=== PATIENT | female | born 1995 | race Caucasian/White ===

== ENCOUNTER 2018-05-16 07:03 | Emergency (ER) | payer BC, OTHER ==
[2018-05-16 07:12] VITALS: RESP 18
[2018-05-16] MEDS ORDERED: SODIUM CHLORIDE 0.9% 500 ML 500 ML IV STA (07:31)
[2018-05-16] MEDS ORDERED: ONDANSETRON 4 MG/2 ML VIAL IVP STA (07:31)
--- NOTE | 2018-05-16 07:35 | ED ---
General Adult HPI - General Chief complaint: Abdominal Pain Stated complaint: Back and abd pain Time Seen by Provider: 05/16/18 07:10 Source: patient, RN notes reviewed Mode of arrival: ambulatory Limitations: no limitations - History of Present Illness Initial comments: This is a 22-year-old female presents emergency Department complaining of abdominal pain and back pain starting this morning. Patient states that sharp in nature when it comes and it's severe when it comes. Patient states on both sides of the abdomen and both CVA areas. Patient states she also was nauseated and vomited times one. Patient states it seems to come in waves. Patient states currently it's still there but it's much better. Patient denies any diarrhea. Patient denies any difficulty breathing and denies any chest pain currently. Patient denies any headache any numbness or weakness. Patient states she has been having a bunch headaches earlier in the week but has not had one yet today. Patient denies any injury or trauma. Patient denies any dysuria hematuria urinary frequency. - Related Data Home Medications Medication Instructions Recorded Confirmed FLUoxetine HCL [PROzac] 40 mg PO HS 11/29/14 05/16/18 Ferrous Sulfate [Feosol] 65 mg PO DAILY 11/29/14 05/16/18 traZODone HCL [Desyrel] 100 mg PO HS 11/29/14 05/16/18 busPIRone HCL [Buspar] 7.5 mg PO BID 01/10/15 05/16/18 Aspirin/Acetaminophen/Caffeine 2 tab PO DAILY PRN 05/16/18 05/16/18 [Excedrin Migraine Caplet] Loratadine [Claritin] 10 mg PO DAILY 05/16/18 05/16/18 buPROPion SR [Wellbutrin SR] 300 mg PO QAM 05/16/18 05/16/18 Allergies Allergy/AdvReac Type Severity Reaction Status Date / Time venom-honey bee Allergy Unknown Swelling Verified 05/16/18 08:12 [bee venom (honey bee)] Review of Systems ROS Statement: Those systems with pertinent positive or pertinent negative responses have been documented in the HPI. ROS Other: All systems not noted in ROS Statement are negative. Past Medical History Past Medical History: Musculoskeletal Disorder Additional Past Medical History / Comment(s): 2 BULGING DISCS IN BACK. Migraines History of Any Multi-Drug Resistant Organisms: None Reported Past Surgical History: Appendectomy Additional Past Surgical History / Comment(s): EXC WISDOM TEETH. Past Anesthesia/Blood Transfusion Reactions: Motion Sickness, Postoperative Nausea & Vomiting (PONV) Past Psychological History: Anxiety, Depression Smoking Status: Never smoker Past Alcohol Use History: Occasional Past Drug Use History: None Reported - Past Family History Mother Family Medical History: No Reported History General Exam - General Exam Comments Initial Comments: GENERAL: Patient is well-developed and well-nourished. Patient is nontoxic and well- hydrated and is in mild distress. ENT: Neck is soft and supple. No significant lymphadenopathy is noted. Oropharynx is clear. Moist mucous membranes. EYES: The sclera were anicteric and conjunctiva were pink and moist. Extraocular movements were intact and pupils were equal round and reactive to light. Eyelids were unremarkable. PULMONARY: Unlabored respirations. Good breath sounds bilaterally. No audible rales rhonchi or wheezing was noted. CARDIOVASCULAR: There is a regular rate and rhythm without any murmurs gallops or rubs. ABDOMEN: Soft and nontender with normal bowel sounds. No palpable organomegaly was noted. There is no palpable pulsatile mass. SKIN: Skin is clear with no lesions or rashes and otherwise unremarkable. NEUROLOGIC: Patient is alert and oriented x3. Cranial nerves II through XII are grossly intact. Motor and sensory are also intact. Normal speech, volume and content. Symmetrical smile. MUSCULOSKELETAL: Normal extremities with adequate strength and full range of motion. No lower extremity swelling or edema. No calf tenderness. LYMPHATICS: No significant lymphadenopathy is noted PSYCHIATRIC: Normal psychiatric evaluation. Limitations: no limitations Course Vital Signs 05/16/18 05/16/18 07:09 09:16 Temperature 98.2 F 98.1 F Pulse Rate 81 67 Respiratory 18 18 Rate Blood Pressure 116/72 115/58 O2 Sat by Pulse 98 99 Oximetry Medical Decision Making - Medical Decision Making Ultrasound showed no acute abnormality. KUB showed no acute abnormality. I will back into reevaluate the patient she stated her symptoms were considerably better. Patient states she was ready to go home at this time. - Lab Data Result diagrams: 05/16/18 07:50 05/16/18 07:50 Lab Results 05/16/18 05/16/18 05/16/18 Range/Units 07:50 07:50 07:50 WBC 6.4 (3.8-10.6) k/uL RBC 4.89 (3.80-5.40) m/uL Hgb 13.8 (11.4-16.0) gm/dL Hct 42.0 (34.0-46.0) % MCV 85.9 (80.0-100.0) fL MCH 28.1 (25.0-35.0) pg MCHC 32.8 (31.0-37.0) g/dL RDW 12.7 (11.5-15.5) % Plt Count 306 (150-450) k/uL Neutrophils % 65 % Lymphocytes % 26 % Monocytes % 7 % Eosinophils % 0 % Basophils % 0 % Neutrophils # 4.2 (1.3-7.7) k/uL Lymphocytes # 1.6 (1.0-4.8) k/uL Monocytes # 0.4 (0-1.0) k/uL Eosinophils # 0.0 (0-0.7) k/uL Basophils # 0.0 (0-0.2) k/uL Sodium 142 (137-145) mmol/L Potassium 4.7 (3.5-5.1) mmol/L Chloride 106 (98-107) mmol/L Carbon Dioxide 30 (22-30) mmol/L Anion Gap 6 mmol/L BUN 13 (7-17) mg/dL Creatinine 0.83 (0.52-1.04) mg/dL Est GFR (CKD-EPI)AfAm >90 (>60 ml/min/1.73 sqM) Est GFR (CKD-EPI)NonAf >90 (>60 ml/min/1.73 sqM) Glucose 105 H (74-99) mg/dL Calcium 10.1 (8.4-10.2) mg/dL Total Bilirubin 0.5 (0.2-1.3) mg/dL AST 26 (14-36) U/L ALT 41 (9-52) U/L Alkaline Phosphatase 70 (38-126) U/L Total Protein 7.5 (6.3-8.2) g/dL Albumin 4.2 (3.5-5.0) g/dL Amylase 51 (30-110) U/L Lipase 53 (23-300) U/L Urine Color Yellow Urine Appearance Cloudy H (Clear) Urine pH 5.5 (5.0-8.0) Ur Specific [place] 1.017 (1.001-1.035) Urine Protein Negative (Negative) Urine Glucose (UA) Negative (Negative) Urine Ketones Negative (Negative) Urine Blood Negative (Negative) Urine Nitrite Negative (Negative) Urine Bilirubin Negative (Negative) Urine Urobilinogen <2.0 (<2.0) mg/dL Ur Leukocyte Esterase Small H (Negative) Urine RBC 2 (0-5) /hpf Urine WBC 4 (0-5) /hpf Ur Squamous Epith Cells 2 (0-4) /hpf Urine Mucus Moderate H (None) /hpf Urine HCG, Qual (Not Detectd) 05/16/18 Range/Units 07:50 WBC (3.8-10.6) k/uL RBC (3.80-5.40) m/uL Hgb (11.4-16.0) gm/dL Hct (34.0-46.0) % MCV (80.0-100.0) fL MCH (25.0-35.0) pg MCHC (31.0-37.0) g/dL RDW (11.5-15.5) % Plt Count (150-450) k/uL Neutrophils % % Lymphocytes % % Monocytes % % Eosinophils % % Basophils % % Neutrophils # (1.3-7.7) k/uL Lymphocytes # (1.0-4.8) k/uL Monocytes # (0-1.0) k/uL Eosinophils # (0-0.7) k/uL Basophils # (0-0.2) k/uL Sodium (137-145) mmol/L Potassium (3.5-5.1) mmol/L Chloride (98-107) mmol/L Carbon Dioxide (22-30) mmol/L Anion Gap mmol/L BUN (7-17) mg/dL Creatinine (0.52-1.04) mg/dL Est GFR (CKD-EPI)AfAm (>60 ml/min/1.73 sqM) Est GFR (CKD-EPI)NonAf (>60 ml/min/1.73 sqM) Glucose (74-99) mg/dL Calcium (8.4-10.2) mg/dL Total Bilirubin (0.2-1.3) mg/dL AST (14-36) U/L ALT (9-52) U/L Alkaline Phosphatase (38-126) U/L Total Protein (6.3-8.2) g/dL Albumin (3.5-5.0) g/dL Amylase (30-110) U/L Lipase (23-300) U/L Urine Color Urine Appearance (Clear) Urine pH (5.0-8.0) Ur Specific [place] (1.001-1.035) Urine Protein (Negative) Urine Glucose (UA) (Negative) Urine Ketones (Negative) Urine Blood (Negative) Urine Nitrite (Negative) Urine Bilirubin (Negative) Urine Urobilinogen (<2.0) mg/dL Ur Leukocyte Esterase (Negative) Urine RBC (0-5) /hpf Urine WBC (0-5) /hpf Ur Squamous Epith Cells (0-4) /hpf Urine Mucus (None) /hpf Urine HCG, Qual Not Detected (Not Detectd) Disposition Clinical Impression: Abdominal pain Disposition: HOME SELF-CARE Instructions: Abdominal Pain (ED) Is patient prescribed a controlled substance at d/c from ED?: No Referrals: Shanna Newton DO [Primary Care Provider] - 1-2 days Time of Disposition: 10:56
[2018-05-16 08:17] LABS: Basophils % (A) 0 %; Eosinophils % (A) 0 %; HGB 13.8 gm/dL (11.4-16.0); Lymphocytes # (A) 1.6 k/uL (1.0-4.8); Lymphocytes % (A) 26 %; MCH 28.1 pg (25.0-35.0); MCHC 32.8 g/dL (31.0-37.0); MCV 85.9 fL (80.0-100.0); Mean Platelet Volume 6.7; Monocytes # (A) 0.4 k/uL (0-1.0); Monocytes % (A) 7 %; Neutrophils # (A) 4.2 k/uL (1.3-7.7); Neutrophils % (A) 65 %; Platelet Count 306 k/uL (150-450); RBC 4.89 m/uL (3.80-5.40); RDW 12.7 % (11.5-15.5); WBC 6.4 k/uL (3.8-10.6)
[2018-05-16 08:21] LABS: Appearance,Urine Cloudy (Clear); Bilirubin,Urine Negative (Negative); Blood,Urine Negative (Negative); Color,Urine Yellow; Glucose,Urine (UA) Negative (Negative); Ketones,Urine Negative (Negative); Leukocyte Esterase,Urine Small (Negative); Mucus,Urine Moderate /hpf; Nitrite,Urine Negative (Negative); PH, Urine 5.5 (5.0-8.0); Protein,Urine Negative (Negative); RBC,Urine 2 /hpf (0-5); Specific Gravity,Urine 1.017 (1.001-1.035); Squamous Epithelial Cell,Urine 2 /hpf (0-4); Urobilinogen,Urine <2.0 mg/dL (<2.0); WBC,Urine 4 /hpf (0-5)
[2018-05-16 08:32] LABS: ALT 41 U/L (9-52); AST 26 U/L (14-36); Albumin 4.2 g/dL (3.5-5.0); Alkaline Phosphatase 70 U/L (38-126); Amylase 51 U/L (30-110); Anion Gap 6 mmol/L; Blood Urea Nitrogen 13 mg/dL (7-17); Calcium 10.1 mg/dL (8.4-10.2); Carbon Dioxide 30 mmol/L (22-30); Chloride 106 mmol/L (98-107); Glucose 105 mg/dL (74-99); Lipase 53 U/L (23-300); Potassium 4.7 mmol/L (3.5-5.1); Sodium 142 mmol/L (137-145); Total Bilirubin 0.5 mg/dL (0.2-1.3); Total Protein 7.5 g/dL (6.3-8.2)
--- NOTE | 2018-05-16 08:59 | XR ---
EXAMINATION TYPE: XR KUB DATE OF EXAM: 05/16/2018 CLINICAL HISTORY: Abdominal pain and vomiting TECHNIQUE: Single view upright abdominal radiograph was obtained. COMPARISON: 12/18/2012 FINDINGS: Scattered gas is seen in nondilated small bowel loops. Gas and fecal material is seen in nondilated colon. There is no visceromegaly, pneumoperitoneum, or abnormal calcification appreciate d. The lung bases are clear and the osseous structures are intact. IMPRESSION: Nonobstructive bowel gas pattern.
--- NOTE | 2018-05-16 10:36 | US ---
EXAMINATION TYPE: US gallbladder DATE OF EXAM: 05/16/2018 COMPARISON: NONE CLINICAL HISTORY: Pain. RUQ that radiates to the back. Not NPO EXAM MEASUREMENTS: Liver Length: 17.1 cm Gallbladder Wall: 0.3 cm CBD: 0.3 cm CHD: 0.3 cm Right Kidney: 10.9 x 5.0 x 3.4 cm Pancreas: Appears echogenic in appearance. Tail not well visualized due to overlying bowel gas. Liver: wnl Gallbladder: Appears nondistended, could be due to not being NPO. Limited visualization. Evidence for sonographic Mcknight's sign: neg CBD: wnl CHD: wnl Right Kidney: wnl IMPRESSION: Contracted gallbladder however there are no findings to suggest acute cholecystitis or ch olelithiasis. Hepatic echotexture is overall unremarkable. No right-sided hydronephrosis.
[2018-05-16 11:18] VITALS: BP 120/54; PULSE 65; TEMP 98.5
== END 2018-05-16 11:24 | disposition home or self-care (01) ==
LOC: EC 07:03
DX: R10.9 Unspecified abdominal pain (principal); R11.2 Nausea with vomiting, unspecified; M54.9 Dorsalgia, unspecified; F41.9 Anxiety disorder, unspecified; F32.9 Major depressive disorder, single episode, unspecified; Z79.899 Other long term (current) drug therapy; Z91.030 Bee allergy status; Z90.49 Acquired absence of other specified parts of digestive tract
CPT/HCPCS: 36415; 80053; 82150; 83690; 85025; 81001; 81025; 74018; 76705; 99284; 96374; J2405

== ENCOUNTER → 2018-06-05 | Outpatient (CLI) | payer BC ==
--- NOTE | 2018-06-06 09:58 | NM ---
EXAMINATION TYPE: NM hepatobiliary w EF DATE OF EXAM: 06/06/2018 COMPARISON: NONE INDICATION: Right upper quadrant pain TECHNIQUE: After the intravenous administration of 5.3 mCi Tc 99m Mebrofenin hepatobiliary scintigrap hy is performed. Images were obtained immediately post injection. FINDINGS: There is prompt uptake and excretion of radiotracer by the liver. Extrahepatic ducts are identified at 7 minutes. The gallbladder is visualized within 120 minutes. Small bowel activity is noted within 12 minutes. At one hour 8 ounces of oral ensure plus is given to mimic CCK and gallbladder ejection fraction is c alculated at 18 %, which is low. (Normal >35% and <80%.). IMPRESSION: 1. Delayed visualization of the gallbladder. 2. Low ejection fraction of 18%. This may be partially related to the delayed visualization of the ga llbladder.
== END | disposition home or self-care (01) ==
LOC: RADNMMAIN 15:06
PROVIDERS: ATTEND Family Medicine
DX: R10.11 Right upper quadrant pain (principal)
CPT/HCPCS: 78226; A9537

== ENCOUNTER 2018-07-03 08:17 | Day surgery (SDC) | payer BC ==
[2018-07-02 12:01] VITALS: BMI 38.4
[~2018-07-03 08:17] MED LIST: DEXAMETHASONE SOD PHOSPHATE 10 MG/ML 1 ML VIAL IV ONE; HEPARIN SODIUM,PORCINE 5,000 UNIT/ML 1 ML VIAL SQ ONE; LACTATED RINGERS 1,000 ML IV SCH; LIDOCAINE 1% 20 ML VIAL (10MG/ML) FOR IV START INTRADERMA PRN; MIDAZOLAM (PF) 2 MG/2 ML VIAL IV PRN; ONDANSETRON 4 MG/2 ML VIAL IVP ONE; SCOPOLAMINE 1.5MG/72HR PATCH TRANSDERM ONE
[2018-07-03] MEDS ORDERED: SCOPOLAMINE 1.5MG/72HR PATCH TRANSDERM ONE (09:57)
--- NOTE | 2018-07-03 09:57 | P.GSHP ---
History of Present Illness H&P Date: 07/03/18 Chief Complaint: Right upper quadrant pain This a 22-year-old female who's had complaints of right quadrant pain. Her recent HIDA scan shows a diminished ejection fraction consistent with biliary dysfunction and chronic cholecystitis. Past Medical History Past Medical History: Musculoskeletal Disorder Additional Past Medical History / Comment(s): Migraines History of Any Multi-Drug Resistant Organisms: None Reported Past Surgical History: Appendectomy, Back Surgery Additional Past Surgical History / Comment(s): EXC WISDOM TEETH. Past Anesthesia/Blood Transfusion Reactions: Motion Sickness, Postoperative Nausea & Vomiting (PONV) Smoking Status: Never smoker - Past Family History Mother Family Medical History: No Reported History Medications and Allergies Home Medications Medication Instructions Recorded Confirmed Type FLUoxetine HCL [PROzac] 40 mg PO HS 11/29/14 07/02/18 History Ferrous Sulfate [Feosol] 65 mg PO DAILY 11/29/14 07/02/18 History traZODone HCL [Desyrel] 100 mg PO HS 11/29/14 07/02/18 History busPIRone HCL [Buspar] 7.5 mg PO BID 01/10/15 07/02/18 History Aspirin/Acetaminophen/Caffeine 2 tab PO DAILY PRN 05/16/18 07/03/18 History [Excedrin Migraine Caplet] Loratadine [Claritin] 10 mg PO DAILY 05/16/18 07/02/18 History Atomoxetine HCl [Strattera] 60 mg PO QAM 07/02/18 07/02/18 History Norgestimate-Ethinyl Estradiol 1 tab PO DAILY 07/02/18 07/02/18 History [Sprintec 28 Day Tablet] Allergies Allergy/AdvReac Type Severity Reaction Status Date / Time venom-honey bee Allergy Unknown Swelling Verified 07/02/18 12:12 [bee venom (honey bee)] adhesive tape Allergy RASH-RED Verified 07/02/18 10:45 SKIN, ITCHING Surgical - Exam Vital Signs Temp Pulse Resp BP Pulse Ox 98.0 F 90 16 127/69 97 07/03/18 09:52 07/03/18 09:52 07/03/18 09:52 07/03/18 09:52 07/03/18 09:52 - General well developed, well nourished, no distress - Eyes PERRL - ENT normal pinna - Neck no masses - Respiratory normal expansion - Cardiovascular Rhythm: regular - Abdomen Abdomen: soft, non tender Assessment and Plan Assessment: Chronic cholecystitis Biliary Dysfunction We'll perform laparoscopic cholecystectomy.
[2018-07-03] MEDS ORDERED: ROCURONIUM BROMIDE 10 MG/ML 10 ML VIAL IV ONE (10:05)
[2018-07-03] MEDS ORDERED: SUCCINYLCHOLINE CHLORIDE VIAL 200 MG/10 ML VIAL IV ONE (10:05)
[2018-07-03] MEDS ORDERED: fentaNYL (PF) 50 MCG/ML 2 ML AMP ONE (10:05)
[2018-07-03] MEDS ORDERED: KETOROLAC 30 MG/ML 1 ML VIAL ONE (10:05)
[2018-07-03] MEDS ORDERED: LIDOCAINE 1% INJ 10MG/ML (20 ML MDV) ONE (10:05)
[2018-07-03] MEDS ORDERED: MIDAZOLAM 2 MG/2 ML VIAL ONE (10:05)
[2018-07-03] MEDS ORDERED: PROPOFOL 10 MG/ML 20 ML VIAL IV ONE (10:05)
[2018-07-03] MEDS ORDERED: NEOSTIGMINE 1 MG/ML 10 ML VIAL ONE (10:05)
[2018-07-03] MEDS ORDERED: GLYCOPYRROLATE 0.2 MG/ML 2 ML VIAL ONE (10:05)
[2018-07-03] MEDS ORDERED: BUPIVACAIN-EPI 0.25%-1:200,000 30 ML VIAL SQ ONE (10:13)
--- NOTE | 2018-07-03 10:55 | P.OP ---
Date of Procedure: 07/03/18 Preoperative Diagnosis: Cholecystitis Postoperative Diagnosis: Cholecystitis Procedure(s) Performed: Laparoscopic cholecystectomy Anesthesia: SAMI Surgeon: Santosh Asif Estimated Blood Loss (ml): 5 Pathology: other (Gallbladder) Condition: stable Disposition: PACU Description of Procedure: The patient was placed on the operating table. The patient received a general endotracheal tube anesthesia. The patients abdomen was prepped and draped in the usual sterile fashion. Through an infraumbilical stab incision, the fascia of the anterior abdominal wall was grasped with a pair of Kochers and then the Veress needle was placed in the peritoneal cavity. Position of the Veress needle was confirmed with positive drop test. The abdomen was then insufflated. After adequate insufflation, the 10 mm trocar was placed in the peritoneal cavity. Following this the laparoscope was placed in the peritoneal cavity. The patient was placed in the head-up, right side up position and then a 5 mm trocar was placed in the right lateral and right subcostal position under direct visualization. A 8 mm trocar was placed in the epigastric position. The gallbladder was grasped in the fundus and infundibulum. Traction on the gallbladder was placed in the lateral and the cephalad positions. The triangle of [place] was visualized.. The cystic duct was bluntly dissected until the union of the cystic duct and common bile duct was seen. The cystic duct was then divided and sealed with the Harmonic scissors. A PDS Endoloop was then placed throughout the cystic duct stump. The cystic artery divided and sealed with the Harmonic scissors. The gallbladder was then removed from the liver bed using Harmonic scissors. The gallbladder was then extracted through the epigastric port site. Operative field was checked for any bleeding spots and Harmonic scissors was used to coagulate the liver bed. The abdomen was irrigated. The trocars were removed. The skin was closed using interrupted 3-0 Vicryl suture. Dermabond dressing were applied. The patient tolerated the procedure well.
[2018-07-03] MEDS: HYDROmorphone 0.5 MG/0.5 ML SYRINGE IVP PRN ×3 (11:01→11:13)
[2018-07-03 11:07] VITALS: TEMP 96.9
[2018-07-03 12:37] VITALS: BP 105/65
[2018-07-03] MEDS ORDERED: HYDROcodone/APAP 7.5-325MG 1 EACH TAB PO ONE (12:37)
[2018-07-03 13:09] VITALS: PULSE 82; RESP 16
== END 2018-07-03 13:55 | disposition home or self-care (01) ==
LOC: OR 08:17
PROVIDERS: ATTEND Surgery
DX: K81.1 Chronic cholecystitis (principal); Z79.3 Long term (current) use of hormonal contraceptives; Z79.899 Other long term (current) drug therapy; Z91.030 Bee allergy status; Z91.09 Other allergy status, other than to drugs and biological substances; G43.909 Migraine, unspecified, not intractable, without status migrainosus; E66.9 Obesity, unspecified; Z68.38 Body mass index [BMI] 38.0-38.9, adult; F41.9 Anxiety disorder, unspecified; F32.9 Major depressive disorder, single episode, unspecified
CPT/HCPCS: 81025; 88304; 47562; J2250; J0330; J1644; J1100; J2710; J0690; J2405; J2001; J3010; J1885; J2704; J1170

== ENCOUNTER → 2018-09-02 | Outpatient (CLI) | payer BC ==
--- NOTE | 2018-09-03 00:41 | CONS ---
CONSULTATION DATE OF SERVICE: 09/02/2018. REASON FOR CONSULTATION: Excessive sleepiness and dizziness. HISTORY: This is a 22-year-old female patient coming in for various complaints. The patient has chronic issues with anxiety and depression. More recently, she was diagnosed having ADD and the patient was started on Strattera 60 mg p.o. daily. She takes a combination of Prozac and BuSpar for chronic anxiety/depression. The patient also has issues with insomnia and for that reason she has been treated with trazodone 100 mg at bedtime for many years. She takes Ativan 0.5 mg on a p.r.n. basis. The patient's 1st complaint is episodes of dizziness. This occurs mainly when she lays down flat in bed. It does not happen during the day and it mainly happens at nighttime when she goes to bed and lays down flat. She feels dizzy and she feels symptoms similar to motion sickness. This happens mainly when she lays down and her eyes are open. She is able to manage. No nausea, no vomiting. No diaphoresis. It goes away while in bed and the patient is able to generate sleepiness. The symptoms have been going on for the past 5 to 6 months. No headaches. No change in vision. No difficulty hearing. No history of any benign positional vertigo. No history of any recurrent otitis or inner ear infections. No history of any perforated eardrums. The patient has not had any previous ENT evaluation. Note that her symptoms of motion sickness and dizziness occur mainly when she lays down flat at bedtime. At the same time the patient is feeling major somnolence and sleepy during the day. She has history of insomnia and she is on the above medications. She is currently able to generate sleep. She goes to bed around 9 p.m., wakes up at 6 a.m. in the morning and she feels very tired and fatigued during the day to the point where she can fall asleep easily at any point in time. She wakes up tired during the day and she has problems with attention memory and concentration. Strattera helps with her symptoms. She has taken a dose of 60 mg p.o. in a.m. She graduated from college at [employer]. 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 She is obese and she has gained weight in the order of 50 pounds over the past 5 years. She underwent a back surgery approximately 3 years ago and since then her weight 2 cough significantly she used to weigh 186, and currently is up to 262 pounds. She does snore and this has been confirmed by the mother. No witnessed apneas. The patient does not utilize any alcohol other than social drinking. No sleep paralysis. No hallucinations. No reported cataplexy. No history of any motor vehicle accident because of feeling drowsy or sleepy. No unusual movement behavior disorders at nighttime during sleep. PAST MEDICAL HISTORY: 1. Chronic anxiety/depression. 2. ADD. 3. Insomnia. 4. Chronic back pain related to spinal stenosis and lumbar disk disease. PAST SURGICAL HISTORY: Includes wisdom tooth extraction, appendectomy, spine surgery involving the lumbar spine, and cholecystectomy. DRUG ALLERGIES: Not known. She is allergic to bees and pine needles and adhesive Band-Aids. OUTPATIENT MEDICATION LIST: 1. Paxil 40 mg p.o. daily. 2. 28 mg tablets 1 tablet a day. 3. Strattera 60 mg p.o. daily. 4. BuSpar 7.5 mg twice a day. 5. Trazodone 100 mg p.o. daily. 6. Lorazepam 0.5 mg twice a day. SOCIAL HISTORY: The patient is a nonsmoker. Drinks alcohol socially. No history of IV drugs. No history of substance abuse. She is a secondary school teacher. FAMILY HISTORY: Positive for sleep apnea. Diabetes and heart disease and blood pressure also run in the family. REVIEW OF SYSTEMS: A 14-point review of system was done. Positive findings are mentioned above history of present illness. Dizziness is a concern. Motion sickness symptoms are also a concern. Wakes up with dry mouth. She has chronic anxiety and depression. No history of panic attacks. No sleepwalking or sleep talking. No restlessness in lower extremities. No nocturnal heartburn, chest pain or shortness of breath. No grinding of the teeth. Her sinus symptoms are well treated with the patient taking trazodone 100 mg at bedtime. PHYSICAL EXAMINATION: BP is 120/70, pulse 100, respirations 16, temperature 97.8, saturation 98% on room air. Height is 5 feet 8 inches weight is 262. Neck size 15 inches, BMI 39.8. GENERAL APPEARANCE: Obese, calm, comfortable. HEAD: Atraumatic, normocephalic. NECK: Supple. There is no JVD. No goiter or neck masses. Mallampati class 2 yet she has some mild tonsillar enlargement. LUNGS: Clear to auscultation. HEART: Sounds regular rate and rhythm. Normal S1, S2. No S3, S4. No murmurs. ABDOMEN: Soft, nontender. No organomegaly. EXTREMITIES: No edema. No cyanosis or clubbing. NEUROLOGIC: She is alert and oriented x3. There are no focal neurological deficits. PSYCHIATRIC: Positive for anxiety and depression. SKIN: Negative for any wounds or ulceration. IMPRESSION: 1. Hypersomnia under investigation. The possibilities are many. The patient may have underlying sleep breathing disorder knowing that she snores and she has gained significant amount of weight over the past 5 years in the order of 50 to 60 pounds with current BMI 39.8. Obviously sleep apnea is a concern. This needs to be ruled out. 2. Dizziness/motion sickness type of symptoms occurring overnight. This is most likely of an inner ear origin. Doubt any relation with any form of sleep disorder. 3. Chronic insomnia, comorbid insomnia regarding chronic anxiety and depression. Patient currently on a combination of Paxil, BuSpar and Ativan as needed and trazodone at bedtime. 4. Chronic back pain related to spinal stenosis and lumbar disk disease. 5. ADD currently on Strattera. 6. Hypersomnia, [place] score of 15. 7. Obesity with a BMI of 39.8. PLAN: 1. Continue Strattera 60 mg for daytime stimulation. 2. Continue trazodone 100 mg at bedtime. 3. Add Antivert regarding motion sickness and dizziness 12.5 mg at bedtime. No need to take the medication in the morning as the patient is not having any daytime symptoms. The patient will need to have an ENT evaluation at later stage and initial evaluation with the primary care physician will be of value. 4. We will set this patient up for screening polysomnogram to assess her sleep architecture, look for sleep breathing disorder or any other pathology contributing to the patient's daytime sleepiness. 5. Continue same psychiatric medications. 6. Continue to follow. 7. Encourage weight loss. 8. Implement good sleep hygiene measures. MMODL / IJN: [id number] /
== END ==
LOC: SLEEP 14:01
PROVIDERS: ATTEND Internal Medicine Critical Care Medicine
DX: G47.10 Hypersomnia, unspecified (principal); F41.9 Anxiety disorder, unspecified; F32.9 Major depressive disorder, single episode, unspecified; F98.8 Other specified behavioral and emotional disorders with onset usually occurring in childhood and adolescence; G89.29 Other chronic pain; M54.9 Dorsalgia, unspecified; M48.061 Spinal stenosis, lumbar region without neurogenic claudication; M51.36 Other intervertebral disc degeneration, lumbar region; F51.04 Psychophysiologic insomnia; E66.9 Obesity, unspecified; T75.3XXA Motion sickness, initial encounter; Z79.899 Other long term (current) drug therapy; Z68.39 Body mass index [BMI] 39.0-39.9, adult
CPT/HCPCS: 99211

== ENCOUNTER → 2020-07-06 | Outpatient (CLI) | payer BC ==
--- NOTE | 2020-07-06 17:23 | CONS ---
CONSULTATION DATE OF SERVICE: 07/06/2020 HISTORY OF PRESENT ILLNESS: This is a 24-year-old lady who has been evaluated in [facility] Center for significant excessive daytime sleepiness. HISTORY OF PRESENT ILLNESS/SLEEP-WAKE EVALUATION: The patient had a home sleep apnea test done in our institution in October of 2018, and at that time apnea-hypopnea index was totally normal, only 1.2. At present, the patient has symptoms of significant excessive daytime sleepiness. [place] Sleepiness Scale is in an extremely high range at 17. She feels sleepiness while driving the car. Her sleep schedule is from 10 p.m. to 6:30 or 7 a.m. on working days and from midnight until 9 a.m. on weekends. No problems with falling asleep, although she has a TV set in the bedroom. She sleeps in different positions. She has mild snoring. She usually sleeps through the night without episodes of nocturia. In the morning the patient wakes up tired, falling asleep during the day, has problems with concentration, depression and anxiety. She takes one nap between 1 and 3 p.m. but usually does not feel refreshed after the nap. She does not see vivid dreams during naps. No history of hypnagogic hallucinations, sleep paralysis or cataplexy. She may feel numbness and heaviness in her legs while falling asleep. PAST MEDICAL HISTORY: Positive for anxiety, depression, ADD. PAST SURGICAL HISTORY: Appendectomy, herniated disc repair, cholecystectomy in 2019. MEDICATIONS: 1. Trazodone 100 mg once during the day at bedtime. 2. Prozac 20 mg once a day in the evening. 3. BuSpar 10 mg twice a day. 4. Atomoxetine 160 mg once a day. 5. Sprintec 0.25 mg once a day. SOCIAL HISTORY: Negative for smoking or using alcohol. FAMILY HISTORY: Positive for hypertension, arthritis, sinus problems, sleep apnea, bronchitis, anemia, acid reflux, ulcer, restless legs, mental illness. REVIEW OF SYSTEMS: Significant excessive daytime sleepiness, including sleepiness while driving the car. PHYSICAL EXAMINATION: GENERAL: A pleasant lady without distress. VITAL SIGNS: BP 136/82, HR 95, RR 12, height 5 feet 9-1/2 inches, weight 284.6 pounds, BMI 42, temperature 98, oxygen saturation at room air 98%. HEENT: PERRLA, EOMI. Evaluation of oropharynx showed tongue protrudes midline. Low position of soft palate. Mallampati III. NECK: Supple. No JVD. Thyroid is not palpable. Neck measures 16 inches in circumference. LUNGS: Clear to percussion and to auscultation. Good air exchange. No wheezing or rhonchi. HEART: S1, S2 regular. No murmurs, gallops or rubs. ABDOMEN: Obese. EXTREMITIES: No clubbing or cyanosis. ACCOUNT INSTALLER: Awake, alert, and oriented X3. Cranial nerves 2 to 7 intact. There is no fasciculation or atrophy. noted. No focal deficits observed. IMPRESSION: 1. Significant excessive daytime sleepiness. [place] Sleepiness Scale is 17. Differential diagnosis includes narcolepsy without cataplexy and idiopathic hypersomnia. 2. Mild snoring, obstructive sleep apnea in differential diagnosis, but previous sleep study which was done as a home test was negative about two years ago. 3. Obesity; BMI 42. The patient's weight increased by about 22 pounds since the previous sleep study. 4. Discomfort in the legs while falling asleep; possibly periodic limb movements. 5. History of attention deficit disorder. 6. Anxiety. 7. Depression. 8. Status post appendectomy. 9. Status post herniated disc repair. 10.Status post cholecystectomy. PLAN: 1. Polysomnography for evaluation of patient's sleep at the present time to check her breathing and any leg movements with a following multiple sleep latency test for objective evaluation of patient's symptoms of excessive daytime sleepiness. The patient should not take her atomoxetine during MSLT. 2. Extreme precautions related to driving. No driving if feeling any sleepiness. 3. Losing weight. 4. Sleep hygiene with regular time bed for at least 8 hours. 5. Following plan after reviewing results of sleep study. Thank you very much for referring this patient for consultation. Sincerely, Zane Harmon MD, PhD, FAASM Diplomat of [employer] [place] [employer] [place] [employer] Telephone Lines Repairer of [facility] [place] MMODL / GARYN: [id number] /
== END | disposition home or self-care (01) ==
LOC: SLEEP 15:50
PROVIDERS: ATTEND Internal Medicine
DX: G47.33 Obstructive sleep apnea (adult) (pediatric) (principal); F41.9 Anxiety disorder, unspecified; F32.9 Major depressive disorder, single episode, unspecified; E66.9 Obesity, unspecified; Z90.49 Acquired absence of other specified parts of digestive tract; Z79.899 Other long term (current) drug therapy; Z79.891 Long term (current) use of opiate analgesic
CPT/HCPCS: 99211

== ENCOUNTER → 2020-09-07 | Outpatient (CLI) | payer BC ==
--- NOTE | 2020-09-07 17:27 | SFUN ---
SLEEP CENTER FOLLOW UP NOTE DATE OF SERVICE: 09/07/2020 INTERVAL HISTORY: A 24-year-old lady who has been followed in Sleep Center to discuss results of sleep study and following plan. I discussed results of sleep studies with patient in detail. Diagnostic polysomnogram did not show any significant respiratory abnormalities. Normal oxygenation during the sleep. Following after that was multiple sleep latency test which consisted from 5 naps which showed mean sleep latency 12.7 minutes without any sleep onset REM periods which did not indicate narcolepsy or idiopathic hypersomnia. In narcolepsy mean sleep latency has to be shorter than 8 minutes with presence of REM sleep onset sleep. Patient continued to feel sleepiness. [place] Sleepiness Scale today is 18. She is on treatment for ADHD with Strattera. MEDICATIONS: Trazodone, Prozac, Buspar. PHYSICAL EXAM: GENERAL: Patient in no distress. VITAL SIGNS: BP 127/63, HR 80, RR 12, weight 287.6 pounds, temperature 98.3. Oxygen saturation on room air 95%. HEENT: PERRLA, EOMI, evaluation of oropharynx showed tongue protrudes midline. NECK: Supple, no JVD. Thyroid is not palpable. LUNGS: Clear to percussion and to auscultation. Good air exchange. No wheezing or rhonchi. HEART: S1, S2 regular. No murmurs, gallops, or rubs. ABDOMEN: Slightly obese, soft and nontender. Bowel sounds are present. No organomegaly appreciated. EXTREMITIES: No clubbing or cyanosis. MAGNETIC HEALER: Awake, alert, and oriented X3. Cranial nerves 2 to 7 intact. There is no fasciculation or atrophy. noted. No focal deficits observed. IMPRESSION: 1. No significant respiratory abnormalities have been documented. Normal oxygenation during the sleep. 2. Obesity. 3. Multiple sleep latency test did not confirm significant excessive daytime sleepiness. Results excluding narcolepsy. 4. History of attention deficit hyperactivity disorder. 5. Anxiety. 6. Depression. 7. Status post appendectomy. 8. Status post herniated disk repair. 9. Status post cholecystectomy. 10.No significant periodic limb movements have been documented during the sleep study. PLAN: 1. Sleep hygiene with regular time in bed for 7 1/2 to 8 hours. 2. No driving if feeling any sleepiness. 3. For treatment of attention deficit hyperactivity disorder, you may consider to change medication from Strattera to Adderall twice a day with adjustments of the dose. I think it may also work for excessive daytime sleepiness. 4. Losing weight. Thank you very much for allowing me to participate in the management of your patient. Sincerely, Zane Harmon MD, PhD, FAASM Diplomat of [place] [employer] [place] [employer] As[employer] Worker of [facility] [place] MMODL / IJN: [id number] /
== END ==
LOC: SLEEP 16:10
PROVIDERS: ATTEND Internal Medicine
DX: E66.9 Obesity, unspecified (principal); F90.9 Attention-deficit hyperactivity disorder, unspecified type; F41.9 Anxiety disorder, unspecified; F32.9 Major depressive disorder, single episode, unspecified; Z90.49 Acquired absence of other specified parts of digestive tract; Z90.89 Acquired absence of other organs; Z98.890 Other specified postprocedural states

== ENCOUNTER → 2020-12-02 | Outpatient (CLI) | payer BC ==
--- NOTE | 2020-12-03 03:25 | MR ---
EXAMINATION TYPE: MR lumbar spine wo/w con DATE OF EXAM: 12/02/2020 COMPARISON: 11/23/2015 HISTORY: Sever low back pain with left leg numbness for 6 years, surgery 4 years ago. CONTRAST: Standard multiplanar, multisequence MRI departmental protocol utilizing 13 mL intravenous Gadavist ga dolinium contrast. The vertebra have normal alignment. There is mild decreased signal and narrowing at the L4-5 disc. Th ere is posterior disc herniation into the spinal canal at L4-5 centrally and towards the right side. There is some impingement on the lateral recess. The neural foramina are fairly well-maintained. Ther e is no compression fracture. There is no lumbar paraspinal mass. There is right-sided laminectomy of L4. There is no evidence of any significant spinal stenosis. Lumbar nerve roots appear fairly normal . IMPRESSION: Posterior L4 5 lumbar disc herniation is not significantly changed compared to old exam. Right-sided laminectomy defect. There is small posterior disc bulge at L3-4 and L5-S1 on the old exam which is im proved on this exam.
== END | disposition home or self-care (01) ==
LOC: RADMRIMAIN 18:23
PROVIDERS: ATTEND Physician Assistant
DX: M51.26 Other intervertebral disc displacement, lumbar region (principal); Q76.49 Other congenital malformations of spine, not associated with scoliosis
CPT/HCPCS: 72158; A9585